=== PATIENT | female | born 1990 | race Caucasian/White ===

== ENCOUNTER 2016-12-12 02:44 | Emergency (ER) | payer BC ==
[2016-12-12 03:32] LABS: BASOPHIL % 0.1 % (0-2); PLATELET COUNT 247 x10^3mcL (130-400); RED CELL DISTRIBUTION WIDTH 13.3 % (11.5-14.5)
[2016-12-12 03:42] LABS: UA SPECIFIC GRAVITY 1.025 (1.005-1.035); microscopic required? YES; urine erythrocyte 1+ (NEGATIVE)
[2016-12-12 04:14] LABS: CALCIUM 8.7 mg/dL (8.5-10.1); CARBON DIOXIDE 27.6 mmol/L (21-32); CHLORIDE SERUM 106 mmol/L (98-107); CREATININE SERUM 0.6 mg/dL (0.6-1.0); GFR1 > 60 mL/min; GLUCOSE SERUM 105 mg/dL (74-106); POTASSIUM SERUM 3.5 mmol/L (3.5-5.1); SODIUM SERUM 143 mmol/L (136-145)
[2016-12-12 04:15] LABS: FREE T4 0.96 ng/dL (0.76-1.46); FREE THYROXINE INDEX 2.8 ug/dL (1.4-4.5)
[2016-12-12 04:18] LABS: ALBUMIN 3.7 g/dL (3.4-5.0); ALKALINE PHOSPHATASE 54 U/L (46-116); ALT/SGPT 139 U/L (14-59); AST/SGOT 183 U/L (15-37); BILIRUBIN TOTAL 0.3 mg/dL (0.20-1.00); CHOLESTEROL 141 mg/dL (<200); LIPASE 119 IU/L (73-393); TOTAL PROTEIN, SERUM 7.1 g/dL (6.4-8.2); TRIGLYCERIDES 74 mg/dL (<150)
[2016-12-12 04:19] LABS: HDL CHOLESTEROL 69 mg/dL (40-60)
[2016-12-12 04:27] LABS: T3 TOTAL 0.98 ng/mL
[2016-12-12 04:55] VITALS: BP 117/79
== END 2016-12-12 04:55 | disposition home or self-care (01) ==
LOC: ED 02:44
PROVIDERS: Specialist
DX: K80.20 Calculus of gallbladder without cholecystitis without obstruction (principal)
CPT/HCPCS: 83880; 84439; J1885; J2405; J3010; J7030; Q0092

== ENCOUNTER 2017-04-20 15:56 | Emergency (ER) | payer BC ==
[~2017-04-20] VITALS: Ht 167.6 cm; Wt 69.6 kg
[2017-04-20 21:01] VITALS: BP 117/92
== END 2017-04-20 21:01 | disposition home or self-care (01) ==
LOC: ED 15:56
DX: L53.8 Other specified erythematous conditions (principal); M79.89 Other specified soft tissue disorders
CPT/HCPCS: J0696; J2270; J2405; Q0092; Q0162